=== PATIENT | female | born 1965 | race Caucasian/White ===

== ENCOUNTER 2020-11-20 04:49 | Emergency (ER) | payer SELFPAY ==
[~2020-11-20] VITALS: Ht 154.9 cm; Wt 102.7 kg
[2020-11-20] MEDS ORDERED: LISI-894 PO (04:57)
[2020-11-20] MEDS ORDERED: OXYMETAZOLINE HCL 0.05% 15 ML NASAL SPRAY NASAL ONE (06:45)
[2020-11-20 07:23] VITALS: BP 141/84
== END 2020-11-20 07:39 | disposition home or self-care (01) ==
LOC: EMS 04:49
DX: R04.0 Epistaxis (principal)
CPT/HCPCS: 99282; Z7502; Z7610